=== PATIENT | female | born 1935 | race Caucasian/White ===

== ENCOUNTER 2019-02-08 06:59 | Outpatient (RCR) | payer MEDICARE, BC, SELFPAY | END 2019-03-09 00:01 | LOC: ONCMED 06:59 | PROVIDERS: Visit Provider Radiology Radiation Oncology | DX: Z51.0 Encounter for antineoplastic radiation therapy (principal); C79.31 Secondary malignant neoplasm of brain; C34.11 Malignant neoplasm of upper lobe, right bronchus or lung | CPT/HCPCS: 77014; 77280; 77336; 77372 ==

== ENCOUNTER 2019-03-24 09:47 | Outpatient (RCR) | payer MEDICARE, BC, SELFPAY ==
--- NOTE | 2019-03-24 10:03 | MR_ITS ---
WS: [id number] MRI BRAIN WITH AND WITHOUT CONTRAST HISTORY: LUNG CA;BRAIN METS COMPARISON: 01/19/2019 TECHNIQUE: Multiplanar imaging performed through the brain with Prohance 13 ml's IV. Significant decrease in size of the recently described metastatic lesions throughout the brain. Media l RIGHT cerebellar metastatic lesion has significantly decreased in size now measuring 10 x 6 mm. Veronica r complete resolution of the satellite lesion in the RIGHT cerebellum. Largest supratentorial lesion described in the RIGHT temporal lobe on the prior study has nearly completely resolved. There is some very minimal peripheral enhancement. Enhancing nodule in the LEFT occipital lobe measures 8 mm with mild decreased. Additional 5 mm persistent enhancement in the medial RIGHT occipital lobe. Cortical e nhancement in the posterior LEFT frontal lobe at the vertex measures 4 mm. Not significantly changed since the prior examination. No new lesions are identified. Some of the previously described metastat ic lesions have completely resolved. No subdural hematomas identified on today's study. There is diffuse increased T2 and FLAIR signal abnormalities throughout the brain probably from brain radiation. No inferior displacement of cerebellar tonsils. Moderate ventriculomegaly is similar to prior studies . Paranasal sinuses: Mild diffuse mucoperiosteal thickening. No air-fluid levels. Mastoid air cells: Normal. Calvarium and scalp: Normal. MR/MR head wo/w con [id number] IMPRESSION: 1. Significant improvement in in appearance of the metastatic lesions througho ut the brain since 01/19/2019. Metastatic sites have either decreased in size o r resolved. 2. Small persistent metastatic sites with the largest measuring 10 x 6 mm in t he medial RIGHT cerebellum. Near complete resolution of the satellite lesion in the RIGHT cerebellum. 3. Near complete resolution of the largest supratentorial lesion in the RIGHT temporal lobe. Some of the previously described metastatic lesions have resolve d while others have significantly decreased in size. 4. No subdural hematoma. 5. Progression of T2 and FLAIR signal hyperintensities probably due to whole b rain radiation since 01/19/2019.
== END 2019-04-09 23:59 | disposition home or self-care (01) ==
LOC: ONCMED 09:47
PROVIDERS: Family Provider Family Medicine; Visit Provider Radiology Radiation Oncology
DX: C79.31 Secondary malignant neoplasm of brain (principal); Z45.2 Encounter for adjustment and management of vascular access device
CPT/HCPCS: 70553; 96523; A9579